=== PATIENT | female | born 1975 | race African-American/Black ===

== ENCOUNTER 2020-03-09 19:12 | Emergency (ER) | payer MEDICAID, MEDICARE ==
[~2020-03-09] VITALS: Ht 167.6 cm; Wt 66.0 kg
[2020-03-09 19:17] VITALS: BP 144/68
== END 2020-03-09 20:51 | disposition left against medical advice (07) ==
LOC: ER 19:12
DX: R07.89 Other chest pain (principal); S40.211A Abrasion of right shoulder, initial encounter; R45.1 Restlessness and agitation; F91.8 Other conduct disorders; R03.0 Elevated blood-pressure reading, without diagnosis of hypertension; V49.49XA Driver injured in collision with other motor vehicles in traffic accident, initial encounter; Y93.89 Activity, other specified; Y92.89 Other specified places as the place of occurrence of the external cause
CPT/HCPCS: 99283